=== PATIENT | male | born 2000 | race Asian ===

== ENCOUNTER 2019-02-01 15:29 | Emergency (ER) | payer SELFPAY ==
[2019-02-01 15:49] VITALS: BP 129/86; PULSE 92; TEMP 98.5; BMI 25.3
--- NOTE | 2019-02-01 15:49 | PDOC ---
Rapid Medical Evaluation Time Seen by Provider: 02/01/19 15:48 Medical Evaluation: 02/01/19 15:48 I have performed a brief in-person evaluation of this patient. The patient presents with a chief complaint of: hand injury Pertinent physical exam findings:stable and in NAD, non-focal I have ordered the following:xray right hand The patient will proceed to the ED for further evaluation.
--- NOTE | 2019-02-01 16:23 | PDOC ---
History of Present Illness - General Chief Complaint: Injury Stated Complaint: RT. HAND PAIN Time Seen by Provider: 02/01/19 15:48 - History of Present Illness Initial Comments: 02/01/19 16:11 CHIEF COMPLAINT: R hand pain HISTORY OF PRESENT ILLNESS: 19 yo M with no PMH presents to fast track with pain to R hand s/p accident. Patient reports that his car door fell onto his hand while he was trying to grab something "like you know when your car is parked sideways and sometimes the door won't stay open, I was trying to get something and I put my hand on the car and the door fell onto it." Patient reports the pain has persisted this week and "now it's starting to bruise on the other side." No recent travel or sick contacts. PAST MEDICAL HISTORY: Denies past medical history FAMILY HISTORY: Denies SOCIAL HISTORY: Denies tobacco, alcohol, illicit drug use. SURGICAL HISTORY: Denies ALLERGIES: No known drug allergies REVIEW OF SYSTEMS General/Constitutional: Denies fever or chills. Denies weakness, weight change. HEENT: Denies change in vision. Denies ear pain or discharge. Denies sore throat. Cardiovascular: Denies chest pain or shortness of breath. Respiratory: Denies cough, wheezing, or hemoptysis. Gastrointestinal: Denies nausea, vomiting, diarrhea or constipation. Denies rectal bleeding. Genitourinary: Denies dysuria, frequency, or change in urination. Musculoskeletal: Pain to R hand. Skin and breasts: Denies rash or easy bruising. Neurologic: Denies headache, vertigo, loss of consciousness, or loss of sensation. Psychiatric: Denies depression or anxiety. PHYSICAL EXAM General Appearance: Well-appearing, appropriately dressed. No apparent distress , no intoxication. HEENT: EOMI, PERRLA, normal ENT inspection, normal voice, TMs normal, pharynx normal. No conjunctival pallor. No photophobia, scleral icterus. Neck: Supple. Trachea midline. No tenderness, rigidity, carotid bruit, stridor , lymphadenopathy, or thyromegaly. Respiratory/Chest: Lungs CTAB. No shortness of breath, chest tenderness, respiratory distress, accessory muscle use. No crackles, rales, rhonchi, stridor , wheezing, dullness Cardiovascular: RRR. S1, S2. No JVD, murmur, bradycardia, tachycardia. Vascular Pulses: Dorsalis-Pedis (R): 2+, Dorsalis-Pedis (L): 2+ Gastrointestinal/Abdominal: Normal bowel sounds. Abdomen soft, non-distended. No tenderness or rebound tenderness. No organomegaly, pulsatile mass, guarding , hernia, hepatomegaly, splenomegaly. Lymphatic: No adenopathy, tenderness. Musculoskeletal/Extremities: Tenderness over R 4th metacarpal with ecchymosis on palmar aspect of R hand. Full ROM to all fingers distally. Neurovascularly intact. Pulses 2+. Normal inspection. FROM of all extremities, normal capillary refill. Pelvis Stable. No CVA tenderness. No tenderness to extremities, pedal edema, swelling, erythema or deformity. Integumentary: Appropriate color, dry, warm. No cyanosis, erythema, jaundice or rash Neurologic: legal practice manager II-XII intact. Fully oriented, alert. Appropriate mood/affect. Motor strength 5/5. No appreciable EOM palsy, facial droop or sensory deficit. 02/01/19 16:23 Past History - Past Medical History Allergies/Adverse Reactions: Allergies Allergy/AdvReac Type Severity Reaction Status Date / Time No Known Allergies Allergy Verified 02/01/19 15:49 COPD: No - Suicide/Smoking/Psychosocial Hx Smoking History: Never smoked Hx Alcohol Use: Yes Drug/Substance Use Hx: No *Physical Exam - Vital Signs Last Vital Signs Temp Pulse Resp BP Pulse Ox 98.5 F 92 H 16 129/86 96 02/01/19 15:46 02/01/19 15:46 02/01/19 15:46 02/01/19 15:46 02/01/19 15:46 Medical Decision Making - Medical Decision Making 02/01/19 16:11 19 yo M with no PMH presents to fast track with pain to R hand s/p accident. 4th metacarpal fracture of right hand. ulnar gutter splint applied. Patient refuses pain meds. Advised patient to take medication as prescribed and follow up with orthopedics within the next 24 hours. Advised patient of signs and symptoms for return to ED. Patient verbalized understanding and agrees to plan. 02/01/19 16:26 *DC/Admit/Observation/Transfer Diagnosis at time of Disposition: Metacarpal bone fracture Qualifiers: Encounter type: initial encounter Metacarpal bone: fourth Fracture type: closed Fracture morphology: unspecified fracture morphology Fracture alignment: displaced Qualified Code(s): S62.308A - Unspecified fracture of other metacarpal bone, initial encounter for closed fracture - Discharge Dispostion Disposition: HOME Condition at time of disposition: Stable Decision to Admit order: No - Referrals Referrals: Darrin Acevedo MD [Staff Physician] - Suhas Jerome DO [Staff Physician] - - Patient Instructions Printed Discharge Instructions: DI for a Hand Fracture Additional Instructions: As discussed, you MUST follow up with orthopedics within the next 1-2 days for management of your hand fracture. If you develop worsening swelling, pain, or any new or worsening symptoms, please return to the ER immediately. - Post Discharge Activity
== END 2019-02-01 16:49 | disposition home or self-care (01) ==
LOC: JERFT 15:29
PROC: 2W3CX1Z Immobilization of Right Lower Arm using Splint (ICD-10-PCS; principal; 2019-02-01)
DX: S62.324A Displaced fracture of shaft of fourth metacarpal bone, right hand, initial encounter for closed fracture (principal); V48.4XXA Person boarding or alighting a car injured in noncollision transport accident, initial encounter; Y92.488 Other paved roadways as the place of occurrence of the external cause; Y93.89 Activity, other specified; Y99.8 Other external cause status
CPT/HCPCS: 73130-TC-RT-FY; 99283-25